=== PATIENT | male | born 1955 ===

== ENCOUNTER 2016-09-26 14:09 | Emergency (ER) | payer OTHER ==
[~2016-09-26] VITALS: Ht 180.3 cm; Wt 100.0 kg
[2016-09-26 14:17] VITALS: BP 144/81; PULSE 74; RESP 18; O2SAT 94
--- NOTE | 2016-09-26 14:55 | ED.REPORT ---
HPI-Back Pain 40 and Over Date of Service Sep 26, 2016 ED Provider: Chuckie Mendoza MD Pt is a 61 y/o male w/ a hx of chronic back pain presenting to the ED c/o lumbar back pain without radiation onset prior to arrival. The patient was taking a shower and made a twisting motion which caused him severe back pain. He lowered himself to the ground and called EMS. Pt denies numbness or weakness of the lower extremities, bowel or bladder incontinence, fever. Nursing Notes Stated Complaint: BACK PAIN Chief Complaint: Back Pain or Injury Nursing Notes Reviewed: Yes Allergies: Coded Allergies: lisinopril (Verified Allergy, Severe, cough, 09/26/16) metformin (Verified Adverse Reaction, Unknown, does work, 09/26/16) Scheduled PRN Cyclobenzaprine (Cyclobenzaprine) 5 Mg Tablet 5 MG PO HS PRN PRN Spasm Ibuprofen (Ibuprofen) 800 Mg Tablet 800 MG PO TID PRN PRN For Pain General Time Seen by MD: 14:54 Chief Complaint Lumbar pain Hx Obtained From: Patient, EMS Arrived By: Ambulance Sudden in Onset?: Yes Onset Occurred: Just prior to arrival Symptom Duration: Since onset Caused by: Aggravated old injury Location: : Perispinal lumbar Quality: Painful Severity: Current: Moderate Severity: Maximum: Severe Recent Healthcare: Previous diagnosis Similar Sx Previous: Yes Past Medical History Past Medical History Chronic back pain Chronic neck pain Past Surgical History Back Neck Smoking History Unknown if Ever Smoker Ambulatory Status Independent Review of Systems Constitutional: Denies: Fever Respiratory: Denies: Shortness of breath Cardiovascular: Denies: Chest pain GI: Denies: Abdominal pain Male: Denies Flank pain Musculoskeletal: Reports: Lumbar pain Neurologic: Denies: Bladder dysfunction, Bowel dysfunction, Numbness, Weakness Complete sys rev & neg: except as marked. Physical Exam Initial Vital Signs Vital Signs (First) Date Time Temp Pulse Resp B/P Pulse Ox O2 Delivery O2 Flow Rate FiO2 09/26/16 14:17 36.3 74 18 144/81 94 Room Air Initial VS: Reviewed, Vital signs abnormal Head / Eyes: Atraumatic, Normocephalic, PERRL ENT: Mucous membranes moist, Conjunctiva normal, No scleral icterus Neck: Supple, Full range of motion Extremities: Vascular intact, Neuro intact, No swelling, No tenderness Skin: Warm, Dry, No cyanosis Psychiatric: Mood/affect normal, Behavior normal, Normal thought content General/Constitutional: Awake, Alert, No acute distress, Cooperative, Not toxic appearing Respiratory / Chest: Atraumatic, Breath sounds NL, Breath sounds = bilat, No respiratory distress, No rales, No rhonchi, No wheezing, No retractions, No stridor, No chest tenderness, No chest wall deformity, No crepitus Cardiovascular: Heart rate NL, Regular rhythm, Heart sounds NL, No gallop, No murmurs, No rubs, Cap refill not delayed, Peripheral circulation NL Abdomen: Atraumatic, Soft Back: Full range of motion, No midline vertebral tend Diffuse tenderness right lower back No step-offs Neurologic: Oriented X3, Speech NL, No motor deficits, No sensory deficits, Memory NL Re-Eval/Medical Decision Med Decision/Clinical Course 61-year-old male with chronic back pain reports that he was in the shower and twisted and had sudden onset right lower back pain. No trauma. No red flag symptoms. No weakness, numbness, tingling, incontinence. Reports muscle spasms. Gait is stable. Patient was given Toradol and his symptoms improved. He will be discharged with ibuprofen and muscle relaxers. Re-Evaluation/Progress : Time of Eval: 15:57 Patient Status: Condition improved, Pain improved Re-Evaluation/Progress Note: Pt rechecked. Informed pt of plan for treatment. Pt understands and agrees with plan for treatment. F/U and RTER warnings given. All questions addressed. Counseled Regarding: Diagnosis, Need for follow-up, When/why to return to ED Discharge & Departure Impression: Primary Impression: Lumbar strain Encounter type: initial encounter Qualified Code: S39.012A - Strain of muscle, fascia and tendon of lower back, initial encounter Disposition: Home Discharge Condition All VS Reviewed: Yes Condition: Stable Patient Instructions: Low Back Strain (ED) Additional Instructions: You likely strained your back. NSAIDS and a muscle relaxer will provide you the most relief. Take Flexeril as needed for muscle spasm. Use Ibuprofen as needed for pain. Flexeril causes drowsiness. Do not drive after taking Flexeril. Return to the emergency department if you experience numbness or weakness of your legs, bowel or bladder incontinence, high fever, or other concerning symptoms. Follow-up with your primary care doctor in 2 days if your symptoms do not improve. Referrals: [facility] Scribe Attestation Portions of this note were transcribed by Michele Freeman. I, Dr. Mendoza personally performed the history, physical exam and medical decision-making; I reviewed and confirmed the accuracy of the information in the transcribed note. Signed by Kadeem Manzo, 09/26/16 - 1530 Chuckie Mendoza MD Sep 26, 2016 14:55 MICHELE FREEMAN Sep 26, 2016 15:02
[2016-09-26] MEDS ORDERED: IBUP800T28 PO (15:46)
[2016-09-26] MEDS ORDERED: CYCL5TAB PO (15:46)
[2016-09-26 16:09] VITALS: BP 139/69; PULSE 81; RESP 17; O2SAT 99
== END 2016-09-26 16:10 | disposition home or self-care (01) ==
LOC: EDBD 14:09 → SED 14:09
DX: S39.012A Strain of muscle, fascia and tendon of lower back, initial encounter (principal); X50.9XXA Other and unspecified overexertion or strenuous movements or postures, initial encounter; Y93.E1 Activity, personal bathing and showering; Y92.002 Bathroom of unspecified non-institutional (private) residence as the place of occurrence of the external cause; Y99.8 Other external cause status; Z88.8 Allergy status to other drugs, medicaments and biological substances